=== PATIENT | female | born 1935 | race Caucasian/White ===

== ENCOUNTER 2017-04-22 05:31 | Outpatient (CLI) | payer MEDICARE ==
[~2017-04-22] VITALS: Ht 165.1 cm; Wt 81.6 kg
[~2017-04-22 05:31] MED LIST: ASP81TEC PO; CALC-794 PO; LEVO125T6 PO; OMEP40CA36 PO; PRAV40TA PO; [UNRECOGNIZED DRUG - CODE] PO
== END 2017-04-22 14:12 ==
LOC: PREOP 05:31
PROVIDERS: ATTEND Internal Medicine
DX: Z01.818 Encounter for other preprocedural examination (principal); Z86.010 Personal history of colon polyps; Z80.0 Family history of malignant neoplasm of digestive organs

== ENCOUNTER 2017-04-26 07:05 | Day surgery (SDC) | payer MEDICARE ==
--- NOTE | 2017-04-19 07:45 | HISTORY AND PHYSICAL ---
DATE OF ADMISSION: 04/26/2017 DICTATING PHYSICIAN: Dr. Goss COLONOSCOPY HISTORY AND PHYSICAL: Ms. Reyes is an 81-year-old white female referred for surveillance colonoscopy. She has a past history of adenomatous colonic polyps. There is also a family history of colon cancer. In this case being her mother, diagnosed in her 60s. Her mother also has a history of breast cancer but at the age of 94 of natural causes. Amarilis last underwent colonoscopy a little over 3 years ago, at which time she had one hyperplastic polyp removed from the rectum. She reports that she has felt well since that time and there have been no significant changes in her health history. PAST MEDICAL HISTORY: Significant for: 1. 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 2. Hypertension. 3. Hyperlipidemia. 4. She has no known history of coronary artery disease. SOCIAL HISTORY: She has no past smoking and only rare alcohol intake. PAST SURGICAL HISTORY: Noncontributory. REVIEW OF SYSTEMS: CONSTITUTIONAL: She denies weight loss, chills or fever. GASTROINTESTINAL: She denies any problems with bowel habit change, bright red blood per rectum, melena, or dysphagia. CARDIOVASCULAR: She denies chest pain, palpitations, syncope, presyncope or increased dyspnea on exertion over baseline. PHYSICAL EXAMINATION: Reveals a white female, appearing younger than her stated age. Blood pressure 124/70. Weight is stable at 182 pounds from 3 years ago. She has normal affect and appears to be in no acute distress. CHEST: Clear. CV: Revealed a regular rate and rhythm without murmur, S3 or S4. ABDOMEN: Soft, supple without masses or organomegaly. Was soft and supple. Bowel sounds were positive in all 4 quadrants. No bruits were noted. EXTREMITIES: Reveal no cyanosis, clubbing, or edema. ASSESSMENT/PLAN: The patient was set-up for surveillance colonoscopy on 26 of April. Prep instructions were given and questions were answered. Electronic medical record was reviewed. Total of 35 minutes of my personal care time was spent with another 10 to 15 minutes of staff time. I thank you for the referral of this pleasant lady. Sincerely, Job ID: [id number] Dictated Date: 04/01/2017 19:55:00 Wire Transfer Clerk Date: 04/02/2017 08:29:50/cinthya
[~2017-04-26] VITALS: Ht 165.1 cm; Wt 81.6 kg
[2017-04-26] MEDS ORDERED: 1/2 NS IV SOLUTION 1,000 ML IV STA (07:22)
[2017-04-26] MEDS ORDERED: MIDAZOLAM 2 MG/2 ML (VERSED) VIAL IVP PRN (07:30)
[2017-04-26] MEDS ORDERED: LIDOCAINE JELLY 2% (XYLOCAINE) 5 ML TUBE MM PRN (07:30)
--- NOTE | 2017-04-26 07:37 | Pre-Op Note & Conscious Sedat ---
Pre-Operative Progress Note H&P Reviewed The H&P was reviewed, patient examined and no changes noted. Date H&P Reviewed: Apr 26, 2017 Time H&P Reviewed: 07:36 Conscious Sedation Pre-Proced ASA Class: 2 Airway Mallampati Classification: ([place] appropriate class) I. II. III, IV Lungs Heart ASA score ASA 1: a normal healthy patient ASA 2: a patient with a mild systemic disease (mid diabetes, controlled hypertension, obesity ASA 3: a patient with a severe systemic disease that limits activity (angina , COPD, prior Myocardial infarction) ASA 4: a patient with an incapacitating disease that is a constant threat to life (CHF, renal failure) ASA 5: a moribund patient not expected to survive 24 hrs. (ruptured aneurysm) ASA 6: a declared brain patient whose organs are being harvested. For emergent operations, add the letter E after the classification Grade 2 Sedation Plan: Analgesia, Amnesia, Plan communicated to team members, Discussed options with patient/fam, Discussed risks with patient/fam Note The patient is an appropriate candidate to undergo the planned procedure, sedation, and anesthesia. The patient immediately re-assessed prior to indication. LAMBERT GARNER MD Apr 26, 2017 07:37
[2017-04-26 07:53] VITALS: BP 136/70
[2017-04-26] MEDS ORDERED: LIDOCAINE JELLY 2% (XYLOCAINE) 5 ML TUBE ONE (07:56)
[2017-04-26] MEDS ORDERED: fentaNYL INJECTION 100 MCG/2 ML AMP ONE (07:56)
[2017-04-26] MEDS ORDERED: MIDAZOLAM 2 MG/2 ML (VERSED) VIAL ONE ×2 (07:56→07:57)
[2017-04-26] MEDS: fentaNYL INJECTION 100 MCG/2 ML AMP IVP PRN ×2 (08:03→08:08)
[2017-04-26 08:45] VITALS: BP 130/55
[2017-04-26 09:15] VITALS: BP 123/57
[2017-04-26 09:35] VITALS: BP 123/57
--- NOTE | 2017-04-28 06:47 | OPERATIVE REPORT ---
DATE OF SERVICE: COLONOSCOPY SUMMARY INDICATION FOR THE PROCEDURE: Screening colonoscopy with family history of colon cancer. The patient was placed in the left lateral decubitus position. Prior to undergoing colonoscopy, digital rectal evaluation was performed. Anal sphincter tone was normal and the perianal reflex was intact. No abnormalities. No additional inspection of anal canal or distal rectal vault. The colonoscope was then inserted into the rectum under direct visualization advanced to the cecum. The cecum was identified by identification of the ileocecal valve and cecal strap. Photographic documentation was obtained. Careful inspection was made as the colonoscope was withdrawn. FINDINGS: There was no evidence for internal or external hemorrhoids and the rectum was unremarkable. Moderate number of [id number]-sp-[id number] size sigmoid diverticulum were present without evidence for diverticulitis. There was mild haustral hypertrophy. The descending colon was unremarkable. Present in the proximal transverse colon was a diminutive 2 mm sessile polyp. It was biopsied and ablated, and submitted for histopathology. The remainder of the hepatic flexure, ascending colon, and cecum were unremarkable. ASSESSMENT: One diminutive polyp was removed from the proximal transverse colon. As long as there are no surprises on histopathology report considering this patient's age with moderate diverticular disease, would not advocate future surveillance colonoscopy. I thank you for the referral of this pleasant lady. Sincerely, Job ID: [id number] DocumentID: [id number] Dictated Date: 04/26/2017 13:26:04 Bullet Slug Casting Machine Operator Date: 04/27/2017 03:18:14 Dictated By: LAMBERT GARNER MD
== END 2017-04-26 09:35 | disposition home or self-care (01) ==
LOC: ENDO 07:05
PROVIDERS: ATTEND Internal Medicine
DX: Z12.11 Encounter for screening for malignant neoplasm of colon (principal); D12.3 Benign neoplasm of transverse colon; K57.30 Diverticulosis of large intestine without perforation or abscess without bleeding; Z80.0 Family history of malignant neoplasm of digestive organs; I10 Essential (primary) hypertension; E78.5 Hyperlipidemia, unspecified; E06.3 Autoimmune thyroiditis; Z79.899 Other long term (current) drug therapy

== ENCOUNTER → 2017-05-03 | Outpatient (CLI) | payer MEDICARE ==
--- NOTE | 2017-05-07 12:55 | Diagnostic Imaging Report ---
INDICATION: Screening. The current study was also evaluated with a Computer Aided Detection (CAD) system. Comparison made with prior examination 05/01/16, 12/06/14 and 10/22/13. FINDINGS: There is a moderate amount of residual fibroglandular tissue, bilaterally. There is no dominant mass, spiculated lesion or malignant appearing clustered microcalcifications identified. Skin, nipples and axillae are unremarkable. IMPRESSION: Negative. ACR BI-RADS Category 1: Negative. Result letter will be mailed to the patient. Note: At least 10% of breast cancer is not imaged by mammography. Dictated by: Dictated on workstation # [id number]
== END ==
LOC: RAD 09:41
PROVIDERS: ATTEND Nurse Practitioner Family
DX: Z12.31 Encounter for screening mammogram for malignant neoplasm of breast (principal)
CPT/HCPCS: 77067

== ENCOUNTER → 2018-06-13 | Outpatient (CLI) | payer MEDICARE ==
--- NOTE | 2018-06-13 12:32 | Diagnostic Imaging Report ---
INDICATION: Digital mammogram bilateral screening with 3D tomosynthesis. This study was compared to the prior exams of 05/03/2017, 05/01/2016 and 12/06/2014. At this time, there are no current complaints. The current study was also evaluated with a Computer Aided Detection (CAD) system. 3-D tomosynthesis was also performed and reviewed. FINDINGS: There are scattered fibroglandular densities in both breasts which could obscure a lesion. Overall, there does not appear to have been any significant change when compared to the prior exam. No primary or secondary sign of malignancy is noted. 3D tomographic images fail to show any sign of malignancy. IMPRESSION: There is no radiographic evidence for malignancy. ACR BI-RADS Category 1: Negative. Result letter will be mailed to the patient. Note: At least 10% of breast cancer is not imaged by mammography. Dictated by: Dictated on workstation # [id number]
== END ==
LOC: RAD 08:48
PROVIDERS: ATTEND Family Medicine
DX: Z12.31 Encounter for screening mammogram for malignant neoplasm of breast (principal)
CPT/HCPCS: 77067

== ENCOUNTER → 2020-06-14 | Outpatient (CLI) | payer MEDICARE ==
--- NOTE | 2020-06-14 13:20 | Diagnostic Imaging Report ---
INDICATION: Routine screening. COMPARISON: 06/13/2018 and 05/03/2017. TECHNIQUE: 2D and 3D bilateral screening mammography was performed with CAD. FINDINGS: Scattered fibroglandular densities are identified bilaterally. A circumscribed density has developed in the retroareolar aspect of the right breast, presumably a small cyst. No other masses are identified. No malignant appearing microcalcifications are seen. The axillae are unremarkable. IMPRESSION: Small circumscribed density in the retroareolar right breast. Further evaluation with ultrasound is recommended. ACR BI-RADS Category 0: Incomplete. (Needs additional imaging evaluation). Result letter will be mailed to the patient. Note: At least 10% of breast cancer is not imaged by mammography. Dictated by: Dictated on workstation # [id number]
== END ==
LOC: RAD 09:45
PROVIDERS: ATTEND Nurse Practitioner Family
DX: Z12.31 Encounter for screening mammogram for malignant neoplasm of breast (principal)
CPT/HCPCS: 77063; 77067

== ENCOUNTER → 2020-06-24 | Outpatient (CLI) | payer MEDICARE ==
--- NOTE | 2020-06-24 15:59 | Diagnostic Imaging Report ---
INDICATION: Right breast density. CORRELATION is made with recent screening mammogram from 06/14/2020. Sonographic interrogation retroareolar right breast was performed. There is a simple appearing cyst at the 9:00 retroareolar region measuring 7 mm x 4 mm x 5 mm. No internal vascularity is present. This most likely accounts for the circumscribed density noted mammographically. No other abnormalities are seen. IMPRESSION: BI-RADS Category 2. Simple cyst at 9:00 retroareolar right breast, corresponding with the mammographic density. Patient may return to routine annual screening mammography. ACR BI-RADS Category 2: Benign findings. Result letter will be mailed to the patient. Note: At least 10% of breast cancer is not imaged by mammography. Dictated by: Dictated on workstation # [id number]
== END ==
LOC: RAD 13:15
PROVIDERS: ATTEND Family Medicine
DX: N60.01 Solitary cyst of right breast (principal)

== ENCOUNTER 2020-11-24 10:28 | Outpatient (RCR) | payer MEDICARE | END 2020-12-27 09:45 | disposition home or self-care (01) | PROVIDERS: ATTEND Family Medicine | DX: R26.81 Unsteadiness on feet (principal); R26.89 Other abnormalities of gait and mobility ==

== ENCOUNTER → 2021-06-20 | Outpatient (CLI) | payer MEDICARE ==
--- NOTE | 2021-06-20 10:23 | Diagnostic Imaging Report ---
INDICATION: Asymptomatic postmenopausal female. COMPARISON: 04/14/2009 FINDINGS: AP Spine L1-L4: [BMD (g/cm2): 0.872] [T-Score: -2.7] [Z-Score: -1.6] [BMD Previous: 0.827] [BMD % Change: 5.4] LT Hip Neck: [BMD (g/cm2): 0.733] [T-Score: -2.2] [Z-Score: -0.2] LT Hip Total: [BMD (g/cm2):0.783] [T-Score:-1.8] [Z-Score: 0.0] [BMD Previous: 0.790] [BMD % Change: -0.9] RT Hip Neck: [BMD (g/cm2):0.709] [T-Score:-2.4] [Z-Score:-0.4] RT Hip Total: [BMD (g/cm2):0.771] [T-score:-1.9] [Z-Score:-0.1] [BMD Previous:0.790] [BMD % Change:-2.4] *Indicates significant change from prior examination based on 95% confidence level. World Health Organization criteria for BMD interpretation classify patients as Normal (T-score at or above -1.0), Osteopenic (T-score between -1.0 and -2.5) or Osteoporotic (T-score at or below -2.5). LIMITATIONS AND MODIFICATION: None. FRACTURE RISK (FRAX SCORE): The ten year probability of (%): Major Osteoporotic Fracture: [15.8] Hip Fracture: [5.5] IMPRESSION: 1. Osteoporosis. 2. No significant change in bone mineral density since prior examination. 3. See below National Osteoporosis Foundation guidelines on when to potentially initiate pharmacologic therapy. Based on the National Osteoporosis Foundation Guidelines, pharmacologic treatment should be initiated in any of the following, unless clinical conditions suggest otherwise: * Any patient with prior fragility fracture of the hip or vertebrae. A spine fracture indicates 5X risk for subsequent spine fracture and 2X risk for subsequent hip fracture. * Osteoporosis (T-score <-2.5). * Postmenopausal women and men age 50 and older with low bone mass/osteopenia (T-score between -1.0 and -2.5) by DXA and 10-year major osteoporotic fracture greater than 20% or a 10-year probability of hip fracture greater than 3%. These fracture risks are supplied above in the FRAX score, if applicable. * Clinician judgement and/or patient preferences may indicate treatment for people with 10-year fracture probabilities above or below these levels. Dictated by: Dictated on workstation # [id number]
--- NOTE | 2021-06-20 15:41 | Diagnostic Imaging Report ---
EXAMINATION: Digital mammogram bilateral screening with CAD. INDICATION: Screening. COMPARISON: This study was compared to the prior exams of 06/14/2020, 06/13/2018, and 05/03/2017. At this time, there are no current complaints. FINDINGS: The previous exam did note a small circumscribed oval asymmetry in the retroareolar region of the right breast. The subsequent right breast ultrasound limited exam performed on 06/24/2020 noted a simple cyst measuring approximately 7 mm in the 9 o'clock position.. On the craniocaudad view of the right breast, the oval asymmetry seen previously is again evident; however, on the MLO view, this asymmetry now seems to lie above the nipple line in probably the 10 o'clock position of the right breast as opposed to below the nipple line as suggested on the prior study. There is another oval asymmetry below the nipple line corresponding to the finding on the previous exam and this finding is unchanged. I do suspect that the asymmetry seen on the MLO view above the nipple line is one and the same as the small oval asymmetry noted on the craniocaudad view. Even so, I would recommend that a repeat ultrasound examination of the right retroareolar region be performed for further study. The left breast is unchanged. IMPRESSION: A repeat ultrasound examination of the right breast would be recommended for further evaluation. ACR BI-RADS Category 0: Incomplete. (Needs additional imaging evaluation). Result letter will be mailed to the patient. Note: At least 10% of breast cancer is not imaged by mammography. Dictated by: Dictated on workstation # [id number]
== END ==
LOC: RAD 09:30
PROVIDERS: ATTEND Family Medicine
DX: Z12.31 Encounter for screening mammogram for malignant neoplasm of breast (principal); M81.0 Age-related osteoporosis without current pathological fracture; Z78.0 Asymptomatic menopausal state
CPT/HCPCS: 77063; 77067; 77080

== ENCOUNTER → 2021-07-07 | Outpatient (CLI) | payer MEDICARE ==
--- NOTE | 2021-07-07 11:08 | Diagnostic Imaging Report ---
INDICATION: Right breast density on recent mammogram. CORRELATION is made with screening mammogram from 06/20/2021. The previously noted cyst at the 9:00 retroareolar right breast is stable approximately 4 mm x 4 mm x 6 mm. Evaluation of the 10:00 retroareolar location does show some dilated ducts. No mass is identified. No other sonographic abnormalities are seen. IMPRESSION: BI-RADS Category 3 Simple cyst at 9:00 retroareolar right breast as well as some ductal dilatation to the 10:00 retroareolar location. No solid mass is detected. Even so, follow-up right mammogram in 6 months is recommended to show continued stability. ACR BI-RADS Category 3: Probably benign findings. Result letter will be mailed to the patient. Note: At least 10% of breast cancer is not imaged by mammography. Dictated by: Dictated on workstation # [id number]
== END ==
LOC: RAD 09:07
PROVIDERS: ATTEND Family Medicine
DX: N60.01 Solitary cyst of right breast (principal)

== ENCOUNTER → 2021-10-12 | Outpatient (CLI) | payer MEDICARE ==
--- NOTE | 2021-10-12 11:49 | Diagnostic Imaging Report ---
Indication: Cough PA and lateral chest Heart size and pulmonary vascularity are normal. Lungs are clear. There are no effusions or pneumothoraces. IMPRESSION: Negative chest Dictated by: Dictated on workstation # [id number]
== END ==
LOC: RAD 11:14
PROVIDERS: ATTEND Nurse Practitioner Family
DX: R05.9 Cough, unspecified (principal); R06.00 Dyspnea, unspecified; U09.9 Post COVID-19 condition, unspecified
CPT/HCPCS: 71046

== ENCOUNTER → 2022-01-18 | Outpatient (CLI) | payer MEDICARE | LOC: RAD 09:15 | PROVIDERS: ATTEND Nurse Practitioner Family | DX: R92.2 Inconclusive mammogram (principal) ==

== ENCOUNTER → 2022-03-22 | Outpatient (CLI) | payer MEDICARE ==
--- NOTE | 2022-03-22 14:20 | Diagnostic Imaging Report ---
INDICATION: Six-month followup right breast nodule. Correlation is made with prior mammogram from 06/20/2021 and 06/14/2020. Unilateral right 2-D and 3-D diagnostic mammography was performed with CAD. Scattered fibroglandular densities in the right breast are noted. The circumscribed nodule retroareolar slightly outer right breast appears stable. No new mass is detected. No malignant-appearing microcalcifications are seen. Right axilla is unremarkable. IMPRESSION: Stable right breast nodule. This shows 6 months of stability. Additional six-month followup is recommended to show continued stability. ACR BI-RADS Category 3: Probably benign findings. Result letter will be mailed to the patient. Note: At least 10% of breast cancer is not imaged by mammography. BI-RADS Category 3 Dictated by: Dictated on workstation # [id number]
== END ==
LOC: RAD 13:45
PROVIDERS: ATTEND Nurse Practitioner Family
DX: N63.10 Unspecified lump in the right breast, unspecified quadrant (principal)
CPT/HCPCS: 77065; G0279

== ENCOUNTER → 2023-07-23 | Outpatient (CLI) | payer MEDICARE ==
--- NOTE | 2023-07-23 13:13 | Diagnostic Imaging Report ---
INDICATION: Postmenopausal screening. COMPARISON: 06/20/2021 FINDINGS: AP Spine L1-L4: [BMD (g/cm2): 0.958] [T-Score: -2.0] [Z-Score: -0.8] [BMD Previous: 0.872] [BMD % Change: 9.9*] LT Hip Neck: [BMD (g/cm2): 0.754] [T-Score: -2.0] [Z-Score: 0.0] LT Hip Total: [BMD (g/cm2):0.793] [T-Score:-1.7] [Z-Score: 0.2] [BMD Previous: 0.783] [BMD % Change: 1.3] RT Hip Neck: [BMD (g/cm2):0.715] [T-Score:-2.3] [Z-Score:-0.3] RT Hip Total: [BMD (g/cm2):0.822] [T-score:-1.5] [Z-Score:0.5] [BMD Previous:0.771] [BMD % Change:6.6*] *Indicates significant change from prior examination based on 95% confidence level. World Health Organization criteria for BMD interpretation classify patients as Normal (T-score at or above -1.0), Osteopenic (T-score between -1.0 and -2.5) or Osteoporotic (T-score at or below -2.5). LIMITATIONS AND MODIFICATION: None. FRACTURE RISK (FRAX SCORE): The ten year probability of (%): Major Osteoporotic Fracture: [27.5] Hip Fracture: [19.1] IMPRESSION: 1. Osteopenia (Low bone mass). 2. There has been a statistically significant increase in BMD since prior exam, detailed above. 3. See below National Osteoporosis Foundation guidelines on when to potentially initiate pharmacologic therapy. Based on the National Osteoporosis Foundation Guidelines, pharmacologic treatment should be initiated in any of the following, unless clinical conditions suggest otherwise: * Any patient with prior fragility fracture of the hip or vertebrae. A spine fracture indicates 5X risk for subsequent spine fracture and 2X risk for subsequent hip fracture. * Osteoporosis (T-score <-2.5). * Postmenopausal women and men age 50 and older with low bone mass/osteopenia (T-score between -1.0 and -2.5) by DXA and 10-year major osteoporotic fracture greater than 20% or a 10-year probability of hip fracture greater than 3%. These fracture risks are supplied above in the FRAX score, if applicable. * Clinician judgement and/or patient preferences may indicate treatment for people with 10-year fracture probabilities above or below these levels. Dictated by: Dictated on workstation # [id number]
--- NOTE | 2023-07-23 16:05 | Diagnostic Imaging Report ---
INDICATION: Routine screening. COMPARISON: 06/20/2021 and 03/22/2022. TECHNIQUE: 2D and 3D bilateral screening mammography was performed with CAD. FINDINGS: Scattered fibroglandular densities are identified bilaterally. The parenchymal pattern is stable. No mass or malignant-appearing microcalcifications are seen. The axillae are unremarkable. IMPRESSION: No mammographic features suspicious for malignancy are identified. ACR BI-RADS Category 1: Negative. Result letter will be mailed to the patient. Note: At least 10% of breast cancer is not imaged by mammography. Dictated by: Dictated on workstation # [id number]
== END ==
LOC: RAD 09:54
PROVIDERS: ATTEND Family Medicine
DX: Z12.31 Encounter for screening mammogram for malignant neoplasm of breast (principal); M85.80 Other specified disorders of bone density and structure, unspecified site; Z78.0 Asymptomatic menopausal state
CPT/HCPCS: 77063; 77067; 77080